=== PATIENT | female | born 1975 | race Two or more races ===

== ENCOUNTER 2017-10-24 04:26 | Emergency (ER) | payer OTHER ==
[~2017-10-24] VITALS: Ht 152.4 cm; Wt 73.5 kg
[~2017-10-24 04:26] MED LIST: CIPRO750 MG PO; TRAMADOL HCL50 MG PO
[2017-10-24] MEDS ORDERED: VERAPAMIL ER180 MG (04:45)
[2017-10-24] MEDS ORDERED: AMOX-CLAV 875-1 EACH PO (09:16)
[2017-10-24] MEDS ORDERED: MEDROLPACK PO (09:16)
[2017-10-24] MEDS ORDERED: TUSSI PRES-B L120 M1 PO (09:16)
== END 2017-10-24 07:44 | disposition home or self-care (01) ==
LOC: ER 04:26
DX: J40 Bronchitis, not specified as acute or chronic (principal)

== ENCOUNTER → 2018-08-31 | Emergency (ER) | payer OTHER ==
[~2018-08-31] VITALS: Ht 152.4 cm; Wt 76.7 kg
[~2018-08-31] MED LIST changes: +AMOX-CLAV 875-1 EACH PO; +DEXAMETHAS0.5 MG/5 M; +LISINOPRIL5 MG; +MEDROLPACK PO; +TUSSI PRES-B L120 M1 PO; +TUSSIONEX PENN115 ML PO; +VERAPAMIL ER180 MG; +VERAPAMIL ER240 MG
== END | disposition home or self-care (01) ==
LOC: ER 15:35
DX: R09.81 Nasal congestion (principal); R05 Cough

== ENCOUNTER 2019-06-09 12:59 | Outpatient (CLI) | payer OTHER | END 2019-06-09 14:25 | disposition home or self-care (01) | LOC: MAMO-SONO 12:59 | DX: Z12.31 Encounter for screening mammogram for malignant neoplasm of breast (principal); N61.0 Mastitis without abscess; E04.1 Nontoxic single thyroid nodule ==

== ENCOUNTER 2019-06-11 14:27 | Outpatient (CLI) | payer OTHER | END 2019-06-11 14:35 | disposition home or self-care (01) | LOC: NUCLEAR 14:27 | DX: M81.0 Age-related osteoporosis without current pathological fracture (principal) ==

== ENCOUNTER 2019-09-14 08:00 | Outpatient (CLI) | payer OTHER | END 2019-09-14 08:26 | disposition home or self-care (01) | LOC: NUCLEAR 08:00 | DX: M46.1 Sacroiliitis, not elsewhere classified (principal) | CPT/HCPCS: 78315; A9503 ==

== ENCOUNTER 2020-01-14 10:03 | Outpatient (CLI) | payer OTHER | END 2020-01-14 10:19 | disposition home or self-care (01) | LOC: NUCLEAR 10:03 | DX: M81.0 Age-related osteoporosis without current pathological fracture (principal) ==

== ENCOUNTER 2020-03-02 10:24 | Outpatient (CLI) | payer OTHER | END 2020-03-02 10:56 | disposition home or self-care (01) | LOC: RAD 10:24 | PROVIDERS: ATTEND Internal Medicine Rheumatology | DX: M54.2 Cervicalgia (principal); M47.812 Spondylosis without myelopathy or radiculopathy, cervical region ==

== ENCOUNTER 2020-04-13 14:10 | Outpatient (CLI) | payer OTHER | END 2020-04-13 14:24 | disposition home or self-care (01) | LOC: SONOGRAMA 14:10 | PROVIDERS: ATTEND Urology | DX: M54.5 Low back pain (principal) ==

== ENCOUNTER 2020-08-01 13:28 | Outpatient (CLI) | payer OTHER | END 2020-08-01 13:30 | disposition home or self-care (01) | LOC: NUCLEAR 13:28 | PROVIDERS: ATTEND Specialist/Technologist, Other Nephrology | DX: N13.8 Other obstructive and reflux uropathy (principal); N19 Unspecified kidney failure | CPT/HCPCS: 78708; A9539; J1940 ==

== ENCOUNTER 2020-08-16 13:52 | Outpatient (CLI) | payer OTHER | END 2020-08-16 14:21 | disposition home or self-care (01) | LOC: MAMO-SONO 13:52 | PROVIDERS: ATTEND Obstetrics & Gynecology | DX: E04.1 Nontoxic single thyroid nodule (principal); N60.11 Diffuse cystic mastopathy of right breast; R92.0 Mammographic microcalcification found on diagnostic imaging of breast ==

== ENCOUNTER 2021-03-16 08:08 | Outpatient (CLI) | payer OTHER | END 2021-03-16 08:26 | disposition home or self-care (01) | LOC: RAD 08:08 | PROVIDERS: ATTEND Internal Medicine Rheumatology | DX: R10.32 Left lower quadrant pain (principal); K59.01 Slow transit constipation; M15.8 Other polyosteoarthritis; M47.817 Spondylosis without myelopathy or radiculopathy, lumbosacral region | CPT/HCPCS: 72148 ==

== ENCOUNTER 2021-08-06 07:27 | Outpatient (CLI) | payer OTHER | END 2021-08-06 07:37 | disposition home or self-care (01) | LOC: MRI 07:27 | PROVIDERS: ATTEND Internal Medicine Rheumatology | DX: M54.59 Other low back pain (principal); M47.817 Spondylosis without myelopathy or radiculopathy, lumbosacral region | CPT/HCPCS: 72148 ==

== ENCOUNTER 2021-10-04 07:06 | Outpatient (CLI) | payer OTHER | END 2021-10-04 07:25 | disposition home or self-care (01) | LOC: MAMO-SONO 07:06 | PROVIDERS: ATTEND Obstetrics & Gynecology | DX: N60.11 Diffuse cystic mastopathy of right breast (principal) ==

== ENCOUNTER 2021-10-26 13:52 | Outpatient (CLI) | payer OTHER | END 2021-10-26 13:59 | disposition home or self-care (01) | LOC: NUCLEAR 13:52 | PROVIDERS: ATTEND Internal Medicine Rheumatology | DX: M85.88 Other specified disorders of bone density and structure, other site (principal); M81.0 Age-related osteoporosis without current pathological fracture ==

== ENCOUNTER 2023-01-09 12:19 | Outpatient (CLI) | payer OTHER | END 2023-01-09 12:31 | disposition home or self-care (01) | LOC: MAMO-SONO 12:19 | PROVIDERS: ATTEND Obstetrics & Gynecology | DX: N60.11 Diffuse cystic mastopathy of right breast (principal) ==

== ENCOUNTER 2023-04-21 14:10 | Outpatient (CLI) | payer OTHER | END 2023-04-21 14:31 | disposition home or self-care (01) | LOC: SONOGRAMA 14:10 | PROVIDERS: ATTEND Specialist/Technologist, Other Nephrology | DX: R10.9 Unspecified abdominal pain (principal); N18.30 Chronic kidney disease, stage 3 unspecified; R31.9 Hematuria, unspecified ==

== ENCOUNTER 2024-06-07 09:50 | Outpatient (CLI) | payer OTHER | END 2024-06-07 10:10 | disposition home or self-care (01) | LOC: MAMO-SONO 09:50 | PROVIDERS: ATTEND Obstetrics & Gynecology | DX: N60.11 Diffuse cystic mastopathy of right breast (principal); N60.12 Diffuse cystic mastopathy of left breast; Z12.31 Encounter for screening mammogram for malignant neoplasm of breast ==

== ENCOUNTER 2024-07-02 13:54 | Outpatient (CLI) | payer OTHER | END 2024-07-02 13:55 | disposition home or self-care (01) | LOC: NUCLEAR 13:54 | PROVIDERS: ATTEND Obstetrics & Gynecology | DX: M81.0 Age-related osteoporosis without current pathological fracture (principal); M89.8X0 Other specified disorders of bone, multiple sites ==

== ENCOUNTER 2024-11-09 12:20 | Outpatient (CLI) | payer OTHER | END 2024-11-09 12:28 | disposition home or self-care (01) | LOC: SONOGRAMA 12:20 | PROVIDERS: ATTEND Specialist/Technologist, Other Nephrology | DX: R10.9 Unspecified abdominal pain (principal); N18.30 Chronic kidney disease, stage 3 unspecified; R31.9 Hematuria, unspecified; N19 Unspecified kidney failure ==

== ENCOUNTER 2025-06-17 13:45 | Outpatient (CLI) | payer OTHER | END 2025-06-17 13:59 | disposition home or self-care (01) | LOC: MAMO-SONO 13:45 | PROVIDERS: ATTEND Obstetrics & Gynecology | DX: N60.11 Diffuse cystic mastopathy of right breast (principal); N60.12 Diffuse cystic mastopathy of left breast; Z12.31 Encounter for screening mammogram for malignant neoplasm of breast ==

== ENCOUNTER 2025-07-05 10:10 | Outpatient (CLI) | payer OTHER | END 2025-07-05 10:14 | disposition home or self-care (01) | LOC: SONOGRAMA 10:10 | PROVIDERS: ATTEND Specialist/Technologist, Other Nephrology | DX: R10.9 Unspecified abdominal pain (principal); N18.30 Chronic kidney disease, stage 3 unspecified; R31.9 Hematuria, unspecified; N19 Unspecified kidney failure ==